=== PATIENT | female | born 1980 ===

== ENCOUNTER 2017-02-17 14:57 | Emergency (ER) | payer BC ==
[2017-02-17 15:10] VITALS: RESP 20
[2017-02-17 16:08] LABS: HCG,QUALITATIVE URINE POSITIVE (NEGATIVE)
[2017-02-17 16:23] LABS: SQUAMOUS EPITHIAL 5 /hpf (0-5); URINE BILIRUBIN NEGATIVE (NEGATIVE); URINE CLARITY Clear (Clear); URINE COLOR Straw (YELLOW); URINE GLUCOSE (UA) NORMAL (Normal); URINE LEUKOCYTE ESTERASE NEG Leu/uL (Negative); URINE NITRATE NEGATIVE (NEGATIVE); URINE PROTEIN NEGATIVE (NEGATIVE); URINE UROBILINOGEN NORMAL mg/dL (0.2-1.0)
--- NOTE | 2017-02-17 16:45 | C.PDOC ---
History Of Present Illness 36 y/o female 10 weeks presents to the emergency department with complaints of vaginal spotting since this morning. Pt with normal IUP on US 3 weeks ago. Denies vomiting, diarrhea, abdominal pain, fever or any other complaints. Time Seen by Provider: 02/17/17 16:33 Chief Complaint (Nursing): Female Genitourinary History Per: Patient History/Exam Limitations: no limitations Onset/Duration Of Symptoms: Hrs Current Symptoms Are (Timing): Still Present Severity: Mild Quality Of Discomfort: denies: "Pain" Associated Symptoms: denies: Fever, Nausea, Vomiting, Diarrhea Recent travel outside of the [place]: No Abnormal Vaginal Bleeding: Yes Past Medical History Reviewed: Historical Data, Nursing Documentation, Vital Signs Vital Signs: Last Vital Signs Temp 98 F 02/17/17 15:07 Pulse 77 02/17/17 15:07 Resp 20 02/17/17 15:07 BP 129/70 02/17/17 15:07 Pulse Ox 97 02/17/17 16:46 Family History: States: Unknown Family Hx - Social History Hx Alcohol Use: No Hx Substance Use: No - Immunization History Hx Tetanus Toxoid Vaccination: No Hx Influenza Vaccination: No Hx Pneumococcal Vaccination: No Review Of Systems Except As Marked, All Systems Reviewed And Found Negative. Constitutional: Negative for: Fever, Chills Gastrointestinal: Negative for: Nausea, Vomiting, Abdominal Pain, Diarrhea Genitourinary: Positive for: Vaginal Bleeding Physical Exam - Physical Exam Appears: Non-toxic, No Acute Distress Skin: Warm, Dry, No Rash Head: Atraumatic, Normacephalic Cardiovascular: Rhythm Regular Respiratory: Normal Breath Sounds, No Rales, No Rhonchi, No Wheezing Gastrointestinal/Abdominal: Normal Exam, Soft, No Tenderness Extremity: Bilateral: Atraumatic Neurological/Psych: Oriented x3, Normal Speech, Normal Cognition ED Course And Treatment - Laboratory Results Lab Interpretation: Abnormal (quant 219,310 H, O+) O2 Sat by Pulse Oximetry: 97 (room air) Pulse Ox Interpretation: Normal - Other Rad preg us X-Ray: Read By Radiologist (+IUP) Reevaluation Time: 18:52 Reassessment Condition: Unchanged (remains asymptomatic) Medical Decision Making Medical Decision Making: spotting, early preg normal IUP O+ Disposition Doctor Will See Patient In The: Office Counseled Patient/Family Regarding: Studies Performed, Diagnosis - Disposition Disposition: HOME/ ROUTINE Disposition Time: 18:53 Condition: GOOD Forms: [facility] (Turkmen) - Clinical Impression Clinical Impression: Threatened - Scribe Statement The provider has reviewed the documentation as recorded by the Scribe Troy Fajardo Provider Attestation: All medical record entries made by the Nicolleibe were at my direction and personally dictated by me. I have reviewed the chart and agree that the record accurately reflects my personal performance of the history, physical exam, medical decision making, and the department course for this patient. I have also personally directed, reviewed, and agree with the discharge instructions and disposition.
[2017-02-17 16:58] LABS: URINE BLOOD 1+ (NEGATIVE)
--- NOTE | 2017-02-17 18:49 | US ---
Indication: 10 weeks, spotting Comparison: Transvaginal ultrasound performed 02/07/17 Technique: 1st trimester ultrasound. Findings: The uterus measures approximately 14.2 x 6.7 x 8.7 cm. Anteverted. Cervix length measures approximately 3.3 cm. There is a single intrauterine fetus present. The gestational sac measures 5.2 cm and is compatible with a gestational age of 11 weeks 0 days. The crown-rump length measures 3.2 cm and is compatible with a gestational age of 10 weeks 1 day. There is heart motion which measured 163 BPM. The right ovary measures 5.9 x 3.4 x 4.1 cm and contains 4.0 x 2.6 x 2.9 cm anechoic avascular lesion compatible with a cyst. The left ovary measures 2.8 x 2.1 x 2.9 cm. Blood flow was demonstrated to both ovaries. Impression: Live single intrauterine with estimated gestational age 11 weeks 0 days by gestational sac calculation and 10 weeks 1 day by crown-rump length calculation. heart rate 163 bpm. Advise an anomaly screen at 16-18 weeks gestational age
[2017-02-17 19:37] VITALS: BP 123/77; PULSE 66; TEMP 98.8; O2SAT 99
== END 2017-02-17 19:34 | disposition home or self-care (01) ==
LOC: C.ER 14:57
DX: O20.0 Threatened abortion (principal); Z3A.10 10 weeks gestation of pregnancy